=== PATIENT | male | born 1960 | race Caucasian/White ===

== ENCOUNTER 2019-11-20 12:51 | Emergency (ER) | payer OTHER ==
[~2019-11-20] VITALS: Ht 182.9 cm; Wt 124.7 kg
[2019-11-20 12:52] VITALS: BP 166/108
[2019-11-20] MEDS ORDERED: NAPROSYN500 MG PO (16:03)
[2019-11-20] MEDS ORDERED: NORFLEX100 MG PO (16:03)
== END 2019-11-20 16:27 | disposition home or self-care (01) ==
LOC: ER 12:51
DX: M43.6 Torticollis (principal); G56.21 Lesion of ulnar nerve, right upper limb; M54.6 Pain in thoracic spine; F17.210 Nicotine dependence, cigarettes, uncomplicated